=== PATIENT | female | born 1970 | race Hispanic/Latino ===

== ENCOUNTER → 2018-09-03 | Outpatient (CLI) | payer BC ==
--- NOTE | 2018-09-03 16:55 | Diagnostic Imaging Report ---
ADDENDUM #1 I have reviewed the images and agree with findings in the preliminary report. Signed by: Dr. Amber Patino M.D. on 09/03/2018 8:54 PM ORIGINAL REPORT Exam: Noncontrast head CT History:Multiple years of vertigo with worsening in the previous month, 48-year-old female Comparison studies: None Technique: Axial images were obtained from the skull base to the vertex. Coronal and sagittal images reconstructed from the axial data. Dose modulation, iterative reconstruction, and/or weight based adjustment of the mA/kV was utilized to reduce the radiation dose to as low as reasonably achievable. Intravenous contrast: None Findings: Scalp/skull: No abnormalities. Extra-axial spaces: No masses. No fluid collections. Brain sulci: Normal Ventricles: Normal. No hydrocephalus. Parenchyma: No parenchymal abnormality No masses, hemorrhage, acute or chronic cortical vascular insults. Sellar/suprasellar region: No abnormalities. Craniocervical junction: Patent foramen magnum. No Chiari one malformation. Incidental findings: Prominent arachnoid granulation in the left transverse sinus. Impression: No acute abnormalities. Signed by: Robert De La Paz MD on 09/03/2018 4:52 PM
== END ==
LOC: CT 16:00
PROVIDERS: ATTEND Internal Medicine
DX: H53.8 Other visual disturbances (principal); R26.9 Unspecified abnormalities of gait and mobility
CPT/HCPCS: 70450

== ENCOUNTER → 2018-10-19 | Outpatient (CLI) | payer BC ==
--- NOTE | 2018-11-05 08:42 | Diagnostic Imaging Report ---
#[id number] - MGSCRBIL #BILATERAL DIGITAL SCREENING MAMMOGRAM WITH CAD: 10/19/2018 CLINICAL: Routine screening. Comparison is made to exams dated: 06/09/2017 mammogram and 10/19/2015 mammogram - [facility]. Current study contains 4 films. The tissue of both breasts is heterogeneously dense. This may lower the sensitivity of mammography. Current study was also evaluated with a Computer Aided Detection (CAD) system. Benign appearing calcifications are noted bilaterally and appear unchanged. No significant masses, calcifications, or other findings are seen in either breast. IMPRESSION: BENIGN There is no mammographic evidence of malignancy. A 1 year screening mammogram is recommended. The patient will be notified by letter of the results. FRANCOISE LUNSFORD M.D. ct/penrad:11/02/2018 11:55:03 [facility]: Brooke MA)(Yogi), [facility] letter sent: Compared to Prior B9 Mammogram BI-RADS: 2 Benign
== END ==
LOC: MAMMO 08:36
PROVIDERS: ATTEND Internal Medicine
DX: Z12.31 Encounter for screening mammogram for malignant neoplasm of breast (principal)
CPT/HCPCS: 77067

== ENCOUNTER → 2018-12-13 | Outpatient (CLI) | payer BC ==
--- NOTE | 2018-12-13 17:45 | Diagnostic Imaging Report ---
Exam: Lumbar spine series Clinical history: Low back pain Comparison: September 20, 2016 Findings: There is no evidence of acute fracture or malalignment. There is interval worsening in the L2-L3 degenerative disc disease with worsening in narrowing of disc space and marginal osteophytes. Interval worsening in narrowing of the L4-L5 disc space is also noted. The soft tissue is unremarkable. Impression: 1. Interval progression in degenerative disc disease at L2-L3 and L4-L5 levels. Signed by: Dr. Mateo Callejas MD on 12/13/2018 5:41 PM
--- NOTE | 2018-12-13 17:51 | Diagnostic Imaging Report ---
Exam: Sacral spine series Clinical history: Low back pain Comparison: October 06, 2014 Findings: There is no evidence of acute fracture or malalignment. There is interval worsening in narrowing of the L4-L5 and L5-S1 disc spaces likely degenerative in nature. The soft tissue is unremarkable. Impression: 1. No radiographic evidence of acute osseous injury. Degenerative changes as described. Signed by: Dr. Mateo Callejas MD on 12/13/2018 5:48 PM
== END ==
LOC: RAD 16:20
PROVIDERS: ATTEND Internal Medicine
DX: M54.5 Low back pain (principal)
CPT/HCPCS: 72110; 72220

== ENCOUNTER → 2020-10-20 | Outpatient (CLI) | payer BC | LOC: MAMMO 12:30 | PROVIDERS: ATTEND Internal Medicine | DX: Z12.31 Encounter for screening mammogram for malignant neoplasm of breast (principal) | CPT/HCPCS: 77067 ==

== ENCOUNTER → 2021-10-19 | Outpatient (CLI) | payer BC | LOC: MAMMO 08:58 | PROVIDERS: ATTEND Obstetrics & Gynecology | DX: Z12.31 Encounter for screening mammogram for malignant neoplasm of breast (principal) | CPT/HCPCS: 77067 ==

== ENCOUNTER → 2022-10-20 | Outpatient (CLI) | payer BC | LOC: MAMMO 13:14 | PROVIDERS: ATTEND Obstetrics & Gynecology | DX: Z12.31 Encounter for screening mammogram for malignant neoplasm of breast (principal) | CPT/HCPCS: 77067 ==